=== PATIENT | female | born 1945 | race Caucasian/White ===

== ENCOUNTER → 2024-03-28 10:57 | Outpatient (REF) | payer OTHER, SELFPAY | LOC: HWWDC 10:57 | PROVIDERS: ATTENDING PHYSICIAN Nurse Practitioner Family; FAMILY PHYSICIAN Family Medicine | DX: Z12.31 Encounter for screening mammogram for malignant neoplasm of breast (principal) | CPT/HCPCS: 77063; 77067 ==

== ENCOUNTER → 2025-03-31 11:10 | Outpatient (REF) | payer OTHER, SELFPAY | LOC: HWWDC 11:10 | PROVIDERS: ATTENDING PHYSICIAN Nurse Practitioner Family | DX: Z12.31 Encounter for screening mammogram for malignant neoplasm of breast (principal) | CPT/HCPCS: 77063; 77067 ==